=== PATIENT | female | born 1950 | race Caucasian/White ===

== ENCOUNTER → 2018-04-20 10:28 | Outpatient (CLI) | payer OTHER, SELFPAY ==
[2018-04-20 11:29] LABS: Hematocrit 42.5 % (36-46); Hemoglobin 14.3 g/dL (12.0-16.0); Mean Corpuscular HGB Conc 33.6 % (30-36); Mean Corpuscular Hemoglobin 30.7 PG (26-34); Mean Corpuscular Volume 91.4 fL (80-100); Platelet Count 342 X10^3/uL (150-400); Red Blood Cell Count 4.64 X10^6/uL (4.0-5.2); Red Cell Distribution Width 13.2 % (11.6-14.8); White Blood Cell Count 7.2 X10^3/uL (4.5-11.0)
[2018-04-20 11:47] LABS: BUN Creatinine Ratio 24.3 (6-22); Blood Urea Nitrogen 17 mg/dL (7-17); Calcium 9.6 mg/dL (8.4-10.2); Carbon Dioxide 28 mmol/L (22-32); Chloride 104 mmol/L (98-107); Estimated Glomerular Filt Rate > 60.0 mL/min (>60); Glucose 60 mg/dL (80-110); HEMOLYSIS < 15 (0-50); Sodium 144 mmol/L (137-145)
== END ==
PROVIDERS: PCP Family Medicine; Visit Provider Orthopaedic Surgery Orthopaedic Surgery of the Spine
DX: Z01.818 Encounter for other preprocedural examination (principal)
CPT/HCPCS: 36415; 80048; 85027; 93005

== ENCOUNTER 2018-05-19 10:55 | Inpatient (IN) | payer MEDICARE, OTHER, SELFPAY ==
[2018-05-03 12:53] VITALS: BMI 21.9
[2018-05-19] VITALS (10 sets, daily range): BP systolic 127–187; BP diastolic 69–104; PULSE 66–91; RESP 12–21; TEMP 35.9–36.9; O2SAT 93–100; BMI 21.9
--- NOTE | 2018-05-19 | DI.RAD.S_ITS ---
PROCEDURE: XR CERVICAL SPINE 2V OR 3V INDICATIONS: ACDF TECHNIQUE: Multiple fluoroscopic intraoperative view(s) of the cervical spine were acquired. COMPARISON: None. FINDINGS: Bones: Intraoperative fluoroscopic views demonstrate anterior fusion and discectomy of the C4-C7. IMPRESSION: Intraoperative fluoroscopic views of ACDF of the cervical spine. Dictated by: Richelle Watson M.D. on 05/19/2018 at 18:34 Approved by: Richelle Watson M.D. on 05/19/2018 at 18:34
[2018-05-19] MEDS: LACTATED RINGERS 1,000 ML 42 ML IV ×2 (12:17→16:57)
--- NOTE | 2018-05-19 14:20 | PM.PREOP ---
Pre-operative Note Interval Note History & Physical reviewed/Exam performed by Physician: Yes Changes to H&P: No
[2018-05-19] MEDS: CLINDAMYCIN 900 MG/50 ML PIGGYBACK 50 MG IV (15:00)
--- NOTE | 2018-05-19 15:38 | SUR.OPER ---
Supine, head on gel donut. Arms padded with gel pads, tucked at sides, towel roll under shoulders. Safety belt at thigh. Legs uncrossed.
--- NOTE | 2018-05-19 17:13 | P.OP_ITS ---
Operative Date/Time/Diagnoses Date of procedure: 05/19/18 Time of procedure: 15:10 Pre-op diagnosis: 1. C4-5, C5-6, C6-7 spinal stenosis 2. C4-5, C5-6, C6-7 spondylosis with radiculopathy Post-op diagnosis: same Procedure & Clinicians Procedure: 1. C4-5 C5-6 C6-7 ANTERIOR CERVICAL DISKECTOMY AND FUSION 2. C4-5 C5-6 C6-7 ANTERIOR INTERBODY CAGE PLACEMENT 3. C4-5 C5-6 C6-7 ANTERIOR INSTRUMENTATION WITH PLATE AND SCREW PLACEMENT IN C4 -C5-C6 AND C7 VERTEBRAE 4. UTILIZATION OF MICROSURGICAL TECHNIQUE AND OPERATING MICROSCOPE Same procedure as scheduled: Yes Indications: PATIENT HAS BEEN HAVING CHRONIC NECK PAIN AND WORSENING CERVICAL RADICULOPATHY. PATIENT FAILED MULTIPLE CONSERVATIVE MANAGEMENT WITH WORSENING PAIN WEAKNESS AND NUMBNESS IN HER UPPER EXTREMITY. PATIENT HAS BEEN HAVING DIFFICULTY PERFORMING ACTIVITY OF DAILY LIVING. AFTER DISCUSSING RISKS BENEFITS OF TREATMENT OPTIONS, PATIENT ELECTED PROCEED WITH SURGERY. Surgeon: Salome Galicia Physician General Practice: [facility] Click Yes if Unassisted: No Anesthesia Type: General Operative Notes Findings: Closure Type: primary Specimen(s): none sent Implants & Drains: GLobus extend plate, PEEK cages Estimated Blood Loss (mL): 10 Blood products transfused: none Procedure in detail: Patient was seen in the preoperative area. Risks and benefits of the surgery was discussed with the patient. Operative consent was obtained and placed in the chart. Patient was then taken to the operative room. Prophylactic antibiotic was given less than 0.5 hr prior to skin incision. General anesthesia was administered. Patient was placed into a supine position on her radiolucent table. Bilateral shoulders were taped down to allow proper C-arm imaging. Anterior cervical area was prepped and draped in a sterile fashion. Time-out was performed at this time. Using lateral C-arm imaging, the level between C4 and C7 was identified and marked on patient's neck. A oblique incision from midline towards medial border of sternocleidomastoid muscle was made. The platysma muscle was incised in line with skin incision. Metzenbaum scissor was used to develop the plane between the medial border of sternocleidomastoid d and the strap muscles medially. The carotid sheath and its contents were identified and protected behind the hand- held retractor during the entire case. The plane between the carotid sheath and strap muscles was developed with Metzenbaum scissors. Dissection was made down to the level of the anterior cervical fascia. Longus colli muscle was incised on the anterior aspect of vertebral bodies bilaterally from C4-C7. Spinal needle was placed into the C4-5 disc space and confirmed with lateral C-arm imaging. Using microsurgical technique and operative microscope, anterior cervical diskectomy was performed at C4-5 C5-6 and C6-7 level. This was done by removing the disc material, removing the anterior and posterior osteophytes posterior longitudinal ligaments along with performing bilateral foraminotomies at all 3 levels. Patient was found to have severe central and foraminal stenosis at all 3 levels. Patient's stenosis was fully decompressed after decompression was completed. At the C6-7 level the left-sided cyst was also identified and removed during the process of decompression. The neural foramen was fully decompressed after the diskectomy and cyst removal. After the diskectomy was completed, 3 anterior interbody cages were obtained. The cages were packed with globus via cell bone grafting material. One cage each along with the bone grafting material was then packed into the interbody spaces from C4-C7 with one cage into each interbody level. After the cages were placed, the anterior cervical plate was stabilized to the C4-C7 vertebrae using 2 screws at each each level. Total 8 screws were placed. After confirming placement of the hardware with AP and lateral C-arm imaging, the screws were locked into the plate using the locking mechanism and torque limiting screwdriver. After the hardware was placed and confirmed with AP and lateral C-arm imaging, the wound was irrigated with sterile normal saline. The platysma muscle and the subcutaneous tissue was closed with 2-0 Vicryl. The skin was closed with 4-0 Monocryl and Steri-Strips. Patient tolerated the procedure well. Patient was transferred recovery room in stable condition. There were no complications. Complications: none Condition: stable Disposition: Acute Care Plan for aftercare: Admit to inpatient hospital
[2018-05-19] MEDS: HYDROMORPHONE 2 MG INJ 0.5 MG IV ×4 (17:35→18:00)
[2018-05-19] MEDS: LORazepam 2 MG/ML SYRINGE 0.5 MG IV ×2 (17:42→17:55)
--- NOTE | 2018-05-19 17:57 | SUR.PHASEI ---
using flacc scale for pain pt is unable to have meaningful conversation re pain
--- NOTE | 2018-05-19 18:29 | SUR.PHASEI ---
pt to sammie 227 vital signs stable one on one report to jaimee ALFREDO
[2018-05-19] MEDS: SODIUM CHLORIDE 0.9% 1,000 ML 100 ML IV (18:50)
[2018-05-19] MEDS: OXYCODONE IR 5 MG TABLET 10 MG PO (18:57)
--- NOTE | 2018-05-19 19:20 | PC.NURSE ---
Evening SHift Note- Patient arrived to room via bed from pacu at 1820. pateint drowsy and mostly sleeping. patine arouses easily to voice. IV [id number] started. PRN PO percolone given for [id number] of pain. Percolone given with applesause due to swallowing discomfort. Oriented patient to bed and bed controls, room, bathrooml menu, phone, lights, and call mueller/tv remote. patient will need to be reoriented when more awake. safety measures in place. call mueller and phone within reach . will continue to monitor.
[2018-05-19] MEDS: SENNOSIDES 8.6 MG TABLET 17.2 MG PO (21:13)
[2018-05-19] MEDS: DOCUSATE 100 MG CAPSULE PO (21:15)
[2018-05-19] MEDS: HYDROMORPHONE 1 MG INJ 0.5 MG IV (21:21)
[2018-05-19] MEDS: CEFAZOLIN 1 GM/50 ML FROZ.PIGGY IV (22:39)
[2018-05-20 00:50] VITALS: BP 141/79; PULSE 106; RESP 16; TEMP 36.8; O2SAT 93
[2018-05-20] MEDS: SODIUM CHLORIDE 0.9% 1,000 ML 100 ML IV (04:49)
[2018-05-20] MEDS: HYDROMORPHONE 1 MG INJ 0.5 MG IV (05:11)
[2018-05-20 05:35] VITALS: BP 139/82; PULSE 108; RESP 16; TEMP 36.8; O2SAT 93
[2018-05-20 06:03] LABS: Hematocrit 40.3 % (36-46); Hemoglobin 13.5 g/dL (12.0-16.0)
[2018-05-20] MEDS: CEFAZOLIN 1 GM/50 ML FROZ.PIGGY IV (06:20)
[2018-05-20] MEDS: DOCUSATE 100 MG CAPSULE PO (08:15)
[2018-05-20] MEDS: OXYCODONE IR 5 MG TABLET 10 MG PO ×2 (08:16→13:22)
[2018-05-20 08:35] VITALS: BP 130/88; PULSE 99; RESP 18; TEMP 37; O2SAT 93
[2018-05-20] MEDS: ONDANSETRON 4 MG/2 ML INJ IV (08:39)
--- NOTE | 2018-05-20 09:57 | PM.DS.1 ---
History of Present Illness Date Patient Seen: 05/20/18 Time Patient Seen: 09:58 Chief complaint: lumbar [id number] Narrative: Hospital day 2, postop day 1 following C4-5 through C6-7 ACDF, cage, anterior plate by Dr. Galicia. Patient states she did get some rest during the night. Pain control with oxycodone 5 mg and 2 doses of Dilaudid IV. She has not been out of bed since surgery. Has not had PT yet. Cox catheter in place. She does note some little bit of numbness and tingling to her left index and long finger. Discharge Providers Date of admission: 05/19/18 10:55 Primary care physician: Blake Bell DO Consults: 05/03/18 13:41 Consult to Respiratory Therapy Evaluate & Treat Comment: Cervical fusion 05/19 Physician Instructions: Evaluate and treat 05/19/18 18:40 Consult to Occupational Therapy Evaluate & Treat Comment: Physician Instructions: Evaluate and treat Consult to Physical Therapy Evaluate & Treat Comment: Physician Instructions: Evaluate and Treat Discharge provider: Jono Nassar PA-C Discharge Date: 05/20/18 Summary Discharge Diagnosis: Status post C4-5 through C6-7 ACDF, cage, anterior plate Hospital Course: Patient brought to hospital on 05/19/2018 for above-noted surgery. She remained stable postoperatively. Progressed with physical therapy. Discharged home on postop day 1. Status at Discharge Cognitive/behavioral status at discharge: Alert, oriented no acute distress. Functional status at discharge: uses cane/walker Overall status at discharge: patient is progressing back to baseline Time Spent with Patient Less than 30 minutes Exam Vital Signs (past 8 hours): - 05/20/18 05:35 05/20/18 08:35 Temperature 98.3 F 98.6 F Pulse Rate 108 H 99 H Respiratory Rate 16 18 Blood Pressure 139/82 130/88 Pulse Oximetry 93 93 Oxygen Delivery Method Nasal Cannula Oxygen Flow Rate 2 Narrative Exam Narrative: Neck. Soft collar in place. Dressing to left anterior neck is dry without drainage or inflammation. Arms. Rotary Envelope Machine Operator strong and equal. Pulses symmetrical. Good sensation to all fingers symmetrical with slight decreased sensation to tip of left index and long finger. Good strength on elbow flexion, extension and shoulder AB duction against resistance symmetrical. Objective Labs Result Diagrams: 05/20/18 05:16 Labs: Laboratory Results - last 24 hr 05/20/18 05:16 Hgb 13.5 Hct 40.3 Discharge Plan Discharge Plan Patient Disposition: Home Discharge comment: Discharged home after cleared by PT. Keep left neck dressing in place. Patient may shower without spray going directly on dressing. Will use soft collar regularly until postop visit. Discharge Med Rec/Prescriptions Prescriptions: New oxycodone 5 mg Tablet 10 mg PO Q3HR PRN (Reason: Pain, Severe (7-10)) Qty: 30 RF: 0 acetaminophen 325 mg Tablet 650 mg PO Q6HR PRN (Reason: Pain, Mild (1-3)) Qty: 30 RF: 0 hydroxyzine pamoate 25 mg Capsule 25 mg PO Q4HR PRN (Reason: Nausea And Vomiting) Qty: 30 RF: 0 Continue zolpidem 10 mg Tablet 5 mg PO BEDTIME PRN (Reason: Sleep) RF: 0 Provider Discharge Instructions Diet: Diet as Tolerated Diet comment: Use liquid to soft diet for the next 1-2 weeks until able to swallow better Activity: Ambulate as tolerated. Avoid excessive neck bending or twisting. No lifting or carrying more than 5 lb. Use a soft cervical collar continuously except for bathing until postop visit. Skin/Wound/Dressing Care Report to your healthcare provider any signs of infection, such as:: chills, fever, night sweats, increased pain, unusual drainage and unusual redness Discharge Data Primary Care Provider: Blake Bell Attending Provider: Salome Galicia Admit Date/Time: 05/19/18 10:55 Quality VTE Deep Vein Thrombosis/Pulmonary Embolism Present on Admission: No
--- NOTE | 2018-05-20 10:01 | P.DS_ITS ---
History of Present Illness Date Patient Seen: 05/20/18 Time Patient Seen: 09:58 Chief complaint: lumbar [id number] Narrative: Hospital day 2, postop day 1 following C4-5 through C6-7 ACDF, cage, anterior plate by Dr. Galicia. Patient states she did get some rest during the night. Pain control with oxycodone 5 mg and 2 doses of Dilaudid IV. She has not been out of bed since surgery. Has not had PT yet. Cox catheter in place. She does note some little bit of numbness and tingling to her left index and long finger. Discharge Providers Date of admission: 05/19/18 10:55 Primary care physician: Blake Bell DO Consults: 05/03/18 13:41 Consult to Respiratory Therapy Evaluate & Treat Comment: Cervical fusion 05/19 Physician Instructions: Evaluate and treat 05/19/18 18:40 Consult to Occupational Therapy Evaluate & Treat Comment: Physician Instructions: Evaluate and treat Consult to Physical Therapy Evaluate & Treat Comment: Physician Instructions: Evaluate and Treat Discharge provider: Jono Nassar PA-C Discharge Date: 05/20/18 Summary Discharge Diagnosis: Status post C4-5 through C6-7 ACDF, cage, anterior plate Hospital Course: Patient brought to hospital on 05/19/2018 for above-noted surgery. She remained stable postoperatively. Progressed with physical therapy. Discharged home on postop day 1. Status at Discharge Cognitive/behavioral status at discharge: Alert, oriented no acute distress. Functional status at discharge: uses cane/walker Overall status at discharge: patient is progressing back to baseline Time Spent with Patient Less than 30 minutes Exam Vital Signs (past 8 hours): - 05/20/18 05:35 05/20/18 08:35 Temperature 98.3 F 98.6 F Pulse Rate 108 H 99 H Respiratory Rate 16 18 Blood Pressure 139/82 130/88 Pulse Oximetry 93 93 Oxygen Delivery Method Nasal Cannula Oxygen Flow Rate 2 Narrative Exam Narrative: Neck. Soft collar in place. Dressing to left anterior neck is dry without drainage or inflammation. Arms. Clinical Laboratory Scientist strong and equal. Pulses symmetrical. Good sensation to all fingers symmetrical with slight decreased sensation to tip of left index and long finger. Good strength on elbow flexion , extension and shoulder AB duction against resistance symmetrical. Objective Labs Result Diagrams: 05/20/18 05:16 Labs: Laboratory Results - last 24 hr 05/20/18 05:16 Hgb 13.5 Hct 40.3 Discharge Plan Discharge Plan Patient Disposition: Home Discharge comment: Discharged home after cleared by PT. Keep left neck dressing in place. Patient may shower without spray going directly on dressing. Will use soft collar regularly until postop visit. Discharge Med Rec/Prescriptions Prescriptions: New oxycodone 5 mg Tablet 10 mg PO Q3HR PRN (Reason: Pain, Severe (7-10)) Qty: 30 RF: 0 acetaminophen 325 mg Tablet 650 mg PO Q6HR PRN (Reason: Pain, Mild (1-3)) Qty: 30 RF: 0 hydroxyzine pamoate 25 mg Capsule 25 mg PO Q4HR PRN (Reason: Nausea And Vomiting) Qty: 30 RF: 0 Continue zolpidem 10 mg Tablet 5 mg PO BEDTIME PRN (Reason: Sleep) RF: 0 Provider Discharge Instructions Diet: Diet as Tolerated Diet comment: Use liquid to soft diet for the next 1-2 weeks until able to swallow better Activity: Ambulate as tolerated. Avoid excessive neck bending or twisting. No lifting or carrying more than 5 lb. Use a soft cervical collar continuously except for bathing until postop visit. Skin/Wound/Dressing Care Report to your healthcare provider any signs of infection, such as:: chills, fever, night sweats, increased pain, unusual drainage and unusual redness Discharge Data Primary Care Provider: Blake Bell Attending Provider: Salome Galicia Admit Date/Time: 05/19/18 10:55 Quality VTE Deep Vein Thrombosis/Pulmonary Embolism Present on Admission: No
--- NOTE | 2018-05-20 11:56 | PT.IIE ---
Current Diagnoses Other spondylosis with radiculopathy, cervical region (05/19/18) Spinal stenosis, cervical region (05/19/18) Surgery Performed Operation Date: 05/19/18 13:15 Actual Procedures p C4-5,C5-6,C6-7 ACDF w/Anterior Instru. - Salome Galicia MD Surgical History (Last Updated 05/03/18 @ 13:43 by Nelda Ahuja RN) Hx of breast implants, bilateral (Acute) Medical History (Last Updated 05/03/18 @ 13:19 by Nelda Ahuja RN) Arthritis (Acute) Bronchitis (Acute) Easy bruisability (Acute) Eczema (Acute) H/O: hysterectomy (Acute) Hip bursitis, left (Acute) Hx of cold sores (Acute) Kidney stone (Acute) Neck pain (Acute) Nerve damage (Acute) Numbness and tingling in left hand (Acute) Ovarian cyst rupture (Acute) TBI (traumatic brain injury) (Acute ~1987) Physical Therapy Inpatient Evaluation/Re-Eval M1 PT/OT-IP Prior Functional Status Start: 05/20/18 11:33 Freq: NEEDED Status: Active Protocol: Document 05/20/18 09:30 (Rec: 05/20/18 11:56 [email or web address]) Medical Review Prior Functional Status Medical History Reviewed Yes Diet/Fluid Consistency Regular Communication No deficits noted Mobility and Gait Pt was an independent ambulator at home and community without using AD Activities of Daily Living and IADL's Pt was independent for all ADLs and IADLs without using AD. Pt also drives Social History Household Members spouse Living Arrangements House Number of Floors (Floors) One Floor Number of Stairs To Enter/Railing? 2 x 4 ABNER with B rails. Home Environment High Toilet Walk in Shower Home Equipment Straight Cane Raised Toilet Seat Without Armrests Shower Seat with Backrest Grab Bars Near Toilet Employment Status Retired Additional Social History Comment Pt lives in a one story home with her in [facility]. Pt has 2 x 4 STEs from both side of the house with B rails . Pt also has multiple canes whose made them before . Pt's is also indepedent in mobility and all ADLs and IDALs, who will be pt's primary CG as needed. Pt has 2 sister that live close by who can also offer help as needed. 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 But she is not expecting to return unless she is fully recovered. M2 PT-IP Current Condition Start: 05/20/18 11:33 Freq: NEEDED Status: Active Protocol: Document 05/20/18 09:30 HH (Rec: 05/20/18 11:56 [email or web address]) Physical Therapy Current Condition Current Condition Evaluation Date 05/20/18 Treatment Diagnosis C4-C7 ACDF, difficulty in walking, generalized muscle weakness Onset Date 05/19/18 Precautions Cervical Spine Precautions Soft Collar at all Times No Heavy Lifting Log Roll M3 PT-IP Subjective Start: 05/20/18 11:33 Freq: NEEDED Status: Active Protocol: Document 05/20/18 09:30 HH (Rec: 05/20/18 11:56 [email or web address]) Subjective Physical Therapy Visit Type Type Initial Evaluation Visit Start Time 09:30 Visit Stop Time 10:10 Total Visit Minutes 40 Notes Pt agreeable to mobilize with PT with at bedside. Per RN, pt has been feeling nausea this morning. Number of CLINICAL UNIT EDUCATOR Visits 0 Physical Therapy Visit Comments Patient Comments Pt states I feel much better today but i did have discomfort and nausea feeling earlier this morning but i received medication around 8 oclock. I havent been getting OOB since sx. Patient Goals To return home with her To return her PLOF without using AD and pain free. Therapy Pain Assessment Pain When Pain Assessed During Mobility Pain Present Pain Present Pain Reported Location Neck Intensity 4 Scale Used Numeric (1 - 10) Description Acute Pain Management Techniques Apply Cold Modification of Treatment Re-positioning Timing of Activity with Medications M4 PT-IP Mobility and Gait Start: 05/20/18 11:33 Freq: NEEDED Status: Active Protocol: Document 05/20/18 09:30 HH (Rec: 05/20/18 11:56 [email or web address]) PT-Bed Mobility Assessment Rolling Type of Rolling Log Rolling Level of Assist Independent Supine to Sit Supine to Sit Independent Bedrails Sit to Supine Sit to Supine Independent Bedrails Scooting Scooting to Edge of Bed Independent Scooting Up and Down in Bed Independent PT-Transfer Assessment Sit to and From Stand Sit to and from Stand Independent Use of Upper Extremities Equipment Transfer Assistive Device Gait Belt Front Wheeled Walker Transfers Transfer Destination Bed Chair Wheelchair Transfer Technique Stand Step Pivot Transfer Ability Level of Assist Independent Comments Mobility Comments Pt education on precautions and log rolling techniques to prevent excessive cervical rotation during supine to sit. Pt was able to perform bed mobility and overall transfer activities with SBA/I with or without FWW. Pt also demonstrates safe transfer techniques with proper hand and feet placements for support. Pt got OOB to sink and wash and groom herself under supervision. Pt did not show acute distress and LOB. Gait Assessment Gait Gait Assistance Required: Independent Distance (Feet) 250 Able to Maintain Weight Bearing Status Yes During Gait Assistive Devices Assistive Device None Gait Belt Front Wheeled Walker Orthotic/Prosthetic Devices or Brace: Yes Gait Deviations General Gait Pattern Decreased Stride Length Decreased Feet Clearance Factors Limiting Gait Function Factors Limiting Gait Function Decreased Activity Tolerance Decreased Strength Limited Range of Motion Pain Poor Balance Comments Gait Comments Pt amb from EOB to sink then hallway for a total of 200 with FWW. Pt was then w/c to the end of hallway for stair training due to c/o fatigue. Pt then amb again from nursing station back to her bedside chair without AD SBA 1p. Pt did now show signs of LOB but she did c/o weakness. Pt also felt nausea and vomitted a small amount in her room. Notified JUNI Gallego. Pt demonstrates overall decreased stride length and feet clearance. Stair Climbing Assessment Evaluation Level of Assist On Stairs Standby Assistance Devices Stair Climbing Assistive Devices None Left Railing Right Railing Technique/Endurance Stair Climbing Direction Ascend and Descend Stair Climbing Technique Step Over Step Number of Steps Climbed 3 Query Text: Stair Climbing Set # Repetitions (reps) 3 Comments Stair Climbing Comments SBA step over step with B rails. No signs of LOB. PT-Balance Assessment Sitting Balance and Reactions Static Sitting Balance Ability Normal Dynamic Sitting Balance Ability Normal Standing Balance and Reactions Static Standing Balance Ability Normal Dynamic Standing Balance Ability Good M5 PT-IP Objective Assessments Start: 05/20/18 11:33 Freq: NEEDED Status: Active Protocol: Document 05/20/18 09:30 HH (Rec: 05/20/18 11:56 [email or web address]) Orientation Orientation/Cognition Level of Alertness Alert Orientation Name Age Birthday Month Date Year Day of Week Place Situation Language Function Ability No Deficits Noted Safety Awareness Understands Safety Issues Memory Description No Deficits Noted Gross Range of Motion Upper Extremity ROM Assessment Within Functional Limits Lower Extremity ROM Assessment Within Functional Limits Strength Upper Extremity Strength Assessment Within Functional Limits Lower Extremity Strength Assessment Within Functional Limits Coordination Assessment Gross Coordination Gross Coordination WNL Sensation Assessment Sensation Gross Sensation WNL Muscle Tone Muscle Tone WNL Yes M6 PT-IP Treatment Start: 05/20/18 11:33 Freq: NEEDED Status: Active Protocol: Document 05/20/18 09:30 HH (Rec: 05/20/18 11:56 HH [email or web address]) Physical Therapy Treatment Education Education Provided Precautions Weight Bearing Status Post-Op Packet Safety Brace Education Patient Caregiver M7 PT-IP Assessment and Plan Start: 05/20/18 11:33 Freq: NEEDED Status: Active Protocol: Document 05/20/18 09:30 HH (Rec: 05/20/18 11:56 HH [email or web address]) PT Summary Assessment and Plan Potential Rehabilitation Potential Excellent Status of Condition at Evaluation Evolving Summary Impairments Pain ROM Strength Balance Bed Mobility Transfers Gait Activity Tolerance Assessment Summary Pt is a pleasant 68yo female admitted to for C4-C7 ACDF. Pt is currently post op day-1 and has not been getting OOB since sx due to pain and nausea feeling. Pt dayday tx session well today with amb 250 ft in total with and without AD and no signs of LOB . Pt also did stair climbing with SBA and B rails. However, pt did feel nausea again at the end of tx session and was transferred back to bedside chair for rest. RN notified. In my professional opinion, the limitations at this point are pain and nausea feeling. D /C pt to home once she is medically stable. Goals Bed Mobility Goal Independent Transfer Goal Independent Gait Goal Independent Gait Distance 400 Other Goals amb x 400 ft without AD stair climbing without AD Days to Meet Goals 3 Frequency of Treatment Frequency Of Treatment Twice a Day Treatment Plan Physical Therapy Treatment Plan Bed Mobility Training Transfer Training Gait Training Therapeutic Exercise Post Op Education Discharge Planning Hot or Cold Pack Other Recommendations and Next Treatment gait training without AD as Focus dayday stair climbing as dayday review precautions Recommendations To Nursing Amount of Assist Needed 1 Person Assist Discharge Recommendations PT Discharge Recommendations Home
--- NOTE | 2018-05-20 12:52 | OT.IP.EVAL ---
Current Diagnoses Other spondylosis with radiculopathy, cervical region (05/19/18) Spinal stenosis, cervical region (05/19/18) Surgery Performed Operation Date: 05/19/18 13:15 Actual Procedures p C4-5,C5-6,C6-7 ACDF w/Anterior Instru. - Salome Galicia MD Past Medical History (Last Updated 05/03/18 @ 13:19 by Nelda Ahuja, RN) Arthritis (Acute) Bronchitis (Acute) Easy bruisability (Acute) Eczema (Acute) H/O: hysterectomy (Acute) Hip bursitis, left (Acute) Hx of cold sores (Acute) Kidney stone (Acute) Neck pain (Acute) Nerve damage (Acute) Numbness and tingling in left hand (Acute) Ovarian cyst rupture (Acute) TBI (traumatic brain injury) (Acute ~1987) Surgical History (Last Updated 05/03/18 @ 13:43 by Nelda Ahuja RN) Hx of breast implants, bilateral (Acute) Occupational Therapy Inpatient Evaluation/Re-Eval M1 PT/OT-IP Prior Functional Status Start: 05/20/18 11:33 Freq: NEEDED Status: Active Protocol: Document 05/20/18 09:30 (Rec: 05/20/18 11:56 [id number]) Medical Review Prior Functional Status Medical History Reviewed Yes Diet/Fluid Consistency Regular Communication No deficits noted Mobility and Gait Pt was an independent ambulator at home and community without using AD Activities of Daily Living and IADL's Pt was independent for all ADLs and IADLs without using AD. Pt also drives Social History Household Members spouse Living Arrangements House Number of Floors (Floors) One Floor Number of Stairs To Enter/Railing? 2 x 4 ABNER with B rails. Home Environment High Toilet Walk in Shower Home Equipment Straight Cane Raised Toilet Seat Without Armrests Shower Seat with Backrest Grab Bars Near Toilet Employment Status Retired Additional Social History Comment Pt lives in a one story home with her in [facility]. Pt has 2 x 4 STEs from both side of the house with B rails . Pt also has multiple canes whose made them before . Pt's is also indepedent in mobility and all ADLs and IDALs, who will be pt's primary CG as needed. Pt has 2 sister that live close by who can also offer help as needed. 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 But she is not expecting to return unless she is fully recovered. M1 PT/OT-IP Prior Functional Status Start: 05/20/18 12:30 Freq: NEEDED Status: Active Protocol: Document 05/20/18 12:35 [facility] (Rec: 05/20/18 12:52 [facility] [id number]) Medical Review Prior Functional Status Medical History Reviewed Yes Diet/Fluid Consistency Regular Communication No deficits noted Mobility and Gait Pt was an independent ambulator at home and community without using AD Activities of Daily Living and IADL's Pt was independent for all ADLs and IADLs without using AD. Pt also drives Social History Household Members spouse Living Arrangements House Number of Floors (Floors) One Floor Number of Stairs To Enter/Railing? 2 x 4 ABNER with B rails. Home Environment High Toilet Walk in Shower Home Equipment Straight Cane Raised Toilet Seat Without Armrests Shower Seat with Backrest Grab Bars Near Toilet Employment Status Retired Additional Social History Comment Pt lives in a one story home with her in [facility]. Pt has 2 x 4 STEs from both side of the house with B rails . Pt also has multiple canes whose made them before . Pt's is also indepedent in mobility and all ADLs and IDALs, who will be pt's primary CG as needed. Pt has 2 sister that live close by who can also offer help as needed. 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 But she is not expecting to return unless she is fully recovered. M2 OT-IP Current Condition Start: 05/20/18 12:30 Freq: Status: Active Protocol: Document 05/20/18 12:35 [facility] (Rec: 05/20/18 12:52 [facility] [id number]) Occupational Therapy Current Condition Current Condition Evaluation Date 05/20/18 Treatment Diagnosis cervical stenosis Diagnosis Onset Date 05/19/18 Post Operative Precautions Cervical Spine Precautions Soft Collar at all Times Rigid Collar No Heavy Lifting Log Roll M3 OT- IP Subjective and Pain Start: 05/20/18 12:30 Freq: Status: Active Protocol: Document 05/20/18 12:35 [facility] (Rec: 05/20/18 12:52 [facility] [id number]) OT- Subjective Occupational Therapy Visit Type Type Initial Evaluation Visit Start Time 11:40 Visit Stop Time 12:00 Total Visit Minutes 20 Occupational Therapy Visit Comments Patient Comments Pt agreeable to get up for OT eval. OT Pain Assessment Pain When Pain Assessed At Rest Pain Present Pain Present Denied Pain M4 OT- IP ADL's Start: 05/20/18 12:30 Freq: Status: Active Protocol: Document 05/20/18 12:35 [facility] (Rec: 05/20/18 12:52 [facility] [id number]) OT ODT-Zhuo-Oxowvzi General Evaluation Self-Feeding Ability Independent Comments OT Self-Feeding Comments Pt statess throat feels sore while eating, educated to eat softer foods, alternate between solids and liquids and to slow her rate down. In addition eating colder foods such as ice cream, popsicles or even ice her neck can be helpful. OT ADL-Grooming Comments OT Grooming Comments Pt able to siria/doff soft collar in front of the mirror with good safety. OT ADL-Dressing Comments OT Dressing Comments Pt states will assist her at home and did not want to do any dressing at this time. OT ADL-Toileting Comments OT Toileting Comments Pt able to walk into the bathroom with SBA and no devices with good safety and balance. Suggested pt may want to wear pads a night initially. Pt states sleep in another bedroom from but will call for him when she gets up to use the bathroom. OT ADL-Bathing Comments OT Bathing Comments Pt has walk in shower at home and use of shower chair. Pt's to install a HHSP. pt fearful of getting the incision and notified nursing that pt would like to use non rinse shower cap prior to going home. M5 OT- IP IADL's Start: 05/20/18 12:30 Freq: Status: Active Protocol: Document 05/20/18 12:35 [facility] (Rec: 05/20/18 12:52 [facility] [email or web address]) OT-Instrumental Activities of Daily Living Home Safety Awareness Home Safety Comments Pt's to assist pt for all IADL needs. M6 OT- IP Functional Cognition Start: 05/20/18 12:30 Freq: Status: Active Protocol: Document 05/20/18 12:35 [facility] (Rec: 05/20/18 12:52 [facility] [email or web address]) Cognitive Factors Limiting Selfcare Function Cognitive Ability Level of Alertness Alert Patient Orientation Name Place Situation Attention Span Ability Capable of Focused Attention Capable of Sustained Attention Ability to Follow Commands Able to Follow One Step Commands Memory Description Immediate Intact Short Term Intact Safety Awareness Underestimates Need for Assistance Problem Solving Ability Needs Assist to Identify Solutions Cognitive Comments Cognitive Assessment Comments Pt able to follow one step commands and needs lot of reassurance for what she is able to do and not do for her neck. OT- Vision and Hearing OT- Hearing Assessment OT- Hearing Assessment WFL M7 OT- IP Mobility and Balance Start: 05/20/18 12:30 Freq: Status: Active Protocol: Document 05/20/18 12:35 [facility] (Rec: 05/20/18 12:52 [facility] [email or web address]) OT- Bed Mobility Assessment Rolling Type of Rolling Roll to Right Level of Assistance Standby Assistance Supine to Sit Supine to Sit Assist Standby Assistance Scooting Scooting to Edge of Bed Standby Assistance OT-Transfer Assessment Sit to and From Stand Sit to and from Stand Standby Assistance Transfers Transfer Ability Standby Assistance Technique Transfer Destination Bed Toilet Transfer Technique Stand Step Pivot Devices Transfer Assistive Devices None Gait Belt Comments Mobility Comments Pt able to move with SBA and gait belt in the room with good safety, balance and not complaints of dizziness. OT- Balance Assessment Sitting Balance and Reactions Static Sitting Balance Ability Normal Dynamic Sitting Balance Ability Normal Standing Balance and Reactions Static Standing Balance Ability Good M8 OT- IP Objective Assessments Start: 05/20/18 12:30 Freq: Status: Active Protocol: Document 05/20/18 12:35 [facility] (Rec: 05/20/18 12:52 [facility] [email or web address]) OT Gross Range of Motion Upper Extremity Range of Motion ROM Impairments WFL for ADL needs. M9 OT- IP Assessment and Plan Start: 05/20/18 12:30 Freq: Status: Active Protocol: Document 05/20/18 12:35 [facility] (Rec: 05/20/18 12:52 [facility] [email or web address]) OT Summary Assessment and Plan Potential Rehabilitation Potential Good Analytic Complexity at Evaluation Low Summary OT Impairments Pain Balance Functional Cognition Bathing Progress Towards Goals Progressing Toward Goals Assessment Summary Pt Low complexity and main barrier just waiting to be able to urinate before going home. Pt moving with SBA and no device at this time. Pt has supportive to be able to assist at home. Educated for soft collar information, equipment needs, and stated good understanding for all. Goals Patient/Caregiver Education Goal Demonstrate Post-Op Precautions Caregiver Independent Assisting Patient Days to Meet Goals 1 Frequency of Treatment Frequency Of Treatment Once a Day Treatment Plan OT Treatment Plan Functional Cognition Training Patient/Family Education Discharge Planning Discharge Recommendations OT Discharge Recommendations Home with Assistance
[2018-05-20] MEDS: hydrOXYzine pamoate 25 MG CAPSULE PO (13:22)
[2018-05-20 13:40] VITALS: BP 117/57; PULSE 92; RESP 17; TEMP 36.7; O2SAT 93
--- NOTE | 2018-05-20 13:55 | PT.IPTN ---
Current Diagnoses Other spondylosis with radiculopathy, cervical region (05/19/18) Spinal stenosis, cervical region (05/19/18) Surgery Performed Operation Date: 05/19/18 13:15 Actual Procedures p C4-5,C5-6,C6-7 ACDF w/Anterior Instru. - Salome Galicia MD Physical Therapy Treatment Note M2 PT-IP Current Condition Start: 05/20/18 11:33 Freq: NEEDED Status: Active Protocol: Document 05/20/18 09:30 [facility] (Rec: 05/20/18 11:56 HH [email or web address]) Physical Therapy Current Condition Current Condition Evaluation Date 05/20/18 Treatment Diagnosis C4-C7 ACDF, difficulty in walking, generalized muscle weakness Onset Date 05/19/18 Precautions Cervical Spine Precautions Soft Collar at all Times No Heavy Lifting Log Roll M3 PT-IP Subjective Start: 05/20/18 11:33 Freq: NEEDED Status: Active Protocol: Document 05/20/18 15:25 [facility]GD (Rec: 05/20/18 15:44 GGD [id number]) Subjective Physical Therapy Visit Type Type Treatment Note Visit Start Time 13:30 Visit Stop Time 13:55 Total Visit Minutes 25 Number of WAITER Visits 1 Physical Therapy Visit Comments Patient Comments PT hopes to go home. Therapy Pain Assessment Pain When Pain Assessed During Mobility Pain Present Pain Present Pain Reported Location Neck Intensity 2 Scale Used Numeric (1 - 10) M4 PT-IP Mobility and Gait Start: 05/20/18 11:33 Freq: NEEDED Status: Active Protocol: Document 05/20/18 15:25 [facility]GD (Rec: 05/20/18 15:44 GGD [id number]) PT-Bed Mobility Assessment Rolling Type of Rolling Log Rolling Level of Assist Independent Supine to Sit Supine to Sit Independent Bedrails Scooting Scooting to Edge of Bed Independent Scooting Up and Down in Bed Independent PT-Transfer Assessment Sit to and From Stand Sit to and from Stand Standby Assistance Use of Upper Extremities Equipment Transfer Assistive Device Gait Belt Transfers Transfer Destination Chair Transfer Ability Level of Assist Standby Assistance Gait Assessment Gait Gait Assistance Required: Contact Guard Assist Distance (Feet) 145 Assistive Devices Assistive Device None Gait Belt Gait Deviations General Gait Pattern Decreased Stride Length Decreased Feet Clearance Factors Limiting Gait Function Factors Limiting Gait Function Decreased Activity Tolerance Decreased Strength Limited Range of Motion Pain Poor Balance M5 PT-IP Objective Assessments Start: 05/20/18 11:33 Freq: NEEDED Status: Active Protocol: Document 05/20/18 09:30 HH (Rec: 05/20/18 11:56 [email or web address]) Orientation Orientation/Cognition Level of Alertness Alert Orientation Name Age Birthday Month Date Year Day of Week Place Situation Language Function Ability No Deficits Noted Safety Awareness Understands Safety Issues Memory Description No Deficits Noted Gross Range of Motion Upper Extremity ROM Assessment Within Functional Limits Lower Extremity ROM Assessment Within Functional Limits Strength Upper Extremity Strength Assessment Within Functional Limits Lower Extremity Strength Assessment Within Functional Limits Coordination Assessment Gross Coordination Gross Coordination WNL Sensation Assessment Sensation Gross Sensation WNL Muscle Tone Muscle Tone WNL Yes M6 PT-IP Treatment Start: 05/20/18 11:33 Freq: NEEDED Status: Active Protocol: Document 05/20/18 09:30 HH (Rec: 05/20/18 11:56 HH [id number]) Physical Therapy Treatment Education Education Provided Precautions Weight Bearing Status Post-Op Packet Safety Brace Education Patient Caregiver M7 PT-IP Assessment and Plan Start: 05/20/18 11:33 Freq: NEEDED Status: Active Protocol: Document 05/20/18 15:25 GGD (Rec: 05/20/18 15:44 GGD [id number]) PT Summary Assessment and Plan Summary Assessment Summary Pt improving with mobility. She was safe with ambulation without AD. She did have decrease step length and foot clearance. She safe for home D /C when medically stable. Frequency of Treatment Frequency Of Treatment Twice a Day Treatment Plan Physical Therapy Treatment Plan Bed Mobility Training Transfer Training Gait Training Therapeutic Exercise Post Op Education Discharge Planning Hot or Cold Pack Other Recommendations and Next Treatment gait training without AD as Focus dayday stair climbing as dayday review precautions
--- NOTE | 2018-05-20 15:52 | CM.DANOTE ---
Discharge Planning/Care Management CM Discharge Assessment Start: 05/20/18 15:47 Freq: Status: Active Protocol: Document 05/20/18 15:48 (Rec: 05/20/18 15:52 [id number]) Discharge Planning Assessment Assigned Barrel Polisher VITOR Zamarripa Advance Directives? Yes History Provided By Patient Medical Record Has Patient been admitted in last 30 No days? Prior Living Arrangements House Household Members spouse Type of transporation used prior to Drives own vehicle admit Independent with ADL's Yes Is patient alert and oriented? Yes Caregiver for Another No Community Services used prior to Physical Therapy admission: Patient/Family Preference OP PT Therapy Barriers to Discharge No Discharge Plan Home Community Services Physical Therapy Transportation Arrangement Spouse will provide. Referrals Initiated None needed Comment Patient admitted following surgery of C4-5 through C6-7. PCP is Dr. Oleary at [facility]. Primary payer is Medicare Part A. Patient to discharge home today pending PT eval. PT eval reports patient safe to discharge home. Met with patient: patient agreeable to discharge home and spouse will provide transportation. No needs or concerns. Whiteboard Updated in Patient Room with Yes name and ext. # of Barrel Polisher Review Status In Process Please Provide Date Initial DC 05/20/18 Assessment Was Performed Next Review Type Continued Stay Review Pre-Anesthesia Assessment Start: 05/03/18 12:53 Freq: Status: Complete Protocol: Document 05/03/18 12:53 [facility] (Rec: 05/03/18 13:35 CAB [id number]) Pre-Anesthesia Assessment Patient Also Known As Moser (AKA) Patient Information Reviewed Via Phone Assessment Assessment Completed With Patient Lab Results BMP/CMP CBC EKG Comment Labs/EKG at 04/13/18 Primary Care Provider Blake Bell Seen Specialist in Last 12 Months Yes Specialist Seen Orthopedist Primary Language [place] Social Welfare Administrator Required No Height 160.02 cm Weight 56.245 kg Body Mass Index (BMI) 21.9 Hearing Ability Normal Visual Assist Glasses Dentition Type Teeth, Natural Present Barriers to Learning None Hx Anesthesia Reactions No Hx Family Anesthesia Reaction No Hx Malignant Hyperthermia No Hx Blood Transfusions No Anesthesia Review Requested No Environmental Health Technician No alcohol intake current alcohol intake frequency a few times a week Smoking Status Current every day smoker Smoking packs per day 0.25 Substance Use Type does not use Pain Present Pain Reported Musculoskeletal Symptoms Joint Stiffness Neck Pain Numbness Radiating Pain into Limb History of Falling (Recent or History of No ) Patient is completely paralyzed or No completely immobile Mental Status Oriented to own ability Is patient on oxygen? No Does patient have EUBANKS/SOB No Hx Sleep Apnea No Currently Taking a Beta Rosa No Can You Climb a Flight of Stairs Without Yes SOB Hx Chest Pain No Hx SOB No Hx Syncope or Dizziness No Anti-Coagulant Therapy No Has a Nsh Teacher No Cardiac Testing No Hx Pacemaker/ICD No Pacemaker Rep Required? No Cardiac Clearance Received Not Applicable Diet Type At Home Regular dysphagia Yes: Occasional w/liquids, solids Urinary Catheter Present No Hx Urinary Self Catheterization No Diabetes No Patient No Lactating No Hx Drug Resistant Organism No Presence of External or Internal Medical Yes Devices Comment Bilateral breast implants Have you traveled outside the [facility] in the last 30 days? Marital Status Lives With spouse Prior Living Arrangements House Number of Floors (Floors) One Floor Number of Stairs To Enter/Railing? none Support System Child/Children Sibling(s) Spouse Does the Patient Have Assistance After Yes Surgery Patient Discharge Plan Description Return Home Comment Pt advised overnight length of stay per surgeon's office Feels Safe in Current Environment Yes Been Physically Hurt or Threatened By a No Person in Current Environment Do you have thoughts of harming yourself None or others? Are you currently considering suicide? No Do you have a plan to hurt yourself or No Plan others? Do You Have Any Spiritual Beliefs That No May Affect Your HC Choices? Do You Have Any Cultural Practices That No May Affect Your HC Choices? Spiritual Referral None Comment Sikhism Who Can We Speak to About Patient's Care Family, friends Identifying Code for Release of Patient Declines to issue Information Health Care Proxy/Next of Kin Issa () Health Care Proxy Emergency Contact Name Issa () Emergency Contact Advance Directives? No: Information mailed to patient Requested Patient Bring Advanced Yes Directives DOS Power of Machine Boss No PAC Instructions Durable medical equipment Nasal antibiotic No ETOH/petroleum product on skin DOS NPO Post-op transportation Pre-surgical wash Sturdy shoes/comfortable clothes Do not bring valuables and remove jewelry
--- NOTE | 2018-05-20 15:59 | PC.NURSE ---
Discharge pt states pain controlled with oxy. did have nausea, medicated with zofran and vistaril to help control this. d/c instructions provided to pt and her . aware of f/u apt with MD. pt cleared by PT, OT and had education by PACKING AND FINAL ASSEMBLY SUPERVISOR. PIV removed prior to d/c. Pt took all belongings with her. left in w/c with [employer] escort.
== END 2018-05-20 15:15 | disposition home or self-care (01) | DRG 473 ==
PROVIDERS: Admitting Provider Orthopaedic Surgery Orthopaedic Surgery of the Spine; PCP Family Medicine; Visit Provider Orthopaedic Surgery Orthopaedic Surgery of the Spine
PROC: 0RG20A0 Fusion of 2 or more Cervical Vertebral Joints with Interbody Fusion Device, Anterior Approach, Anterior Column, Open Approach (ICD-10-PCS; principal; 2018-05-19 13:15)
DX: M48.02 Spinal stenosis, cervical region (principal); M47.22 Other spondylosis with radiculopathy, cervical region; M81.0 Age-related osteoporosis without current pathological fracture; F17.210 Nicotine dependence, cigarettes, uncomplicated
CPT/HCPCS: 36415; 72040; 76000; 85014; 85018; 97116; 97161; 97165; 97530; 99406; C1776; J0330; J1100; J1170; J2060; J2250; J2405; J2704; J3010